=== PATIENT | female | born 1990 | race Caucasian/White ===

== ENCOUNTER 2020-02-23 20:05 | Emergency (ER) | payer SELFPAY ==
[~2020-02-23] VITALS: Ht 160 cm; Wt 54.5 kg
[2020-02-23 20:37] VITALS: Ht 160 cm; Wt 54.5 kg
[2020-02-23] MEDS ORDERED: PROVENTIL/2.5 MG/3 M INH (20:39)
[2020-02-23 21:09] LABS: HCG URINE NEGATIVE (NEGATIVE)
[2020-02-23 21:15] LABS: BASOPHILS 0.5 % (0-2); EOSINOPHILS 8.6 % (0-7); HEMATOCRIT 33.1 % (36.0-48.0); HEMOGLOBIN 10.8 g/dL (12-16); IMMATURE GRANULOCYTES 0.6 % (0-5); LYMPHOCYTES 28.2 % (15-50); MCH 25.7 pg (26.0-34.0); MCHC 32.6 g/dL (31.0-37.0); MCV 78.6 fL (80.0-100.0); MEAN PLATELET VOLUME 10.3 fL (7.4-10.4); NEUTROPHILS 53.1 % (40-80); PLATELET COUNT 259 10x3/uL (130-400); RBC 4.21 10x6/uL (4.00-5.40); RDW 14.8 % (11.5-14.5); WBC 6.6 10x3/uL (4.8-10.8)
[2020-02-23 21:27] LABS: ALBUMIN 3.6 g/dL (3.4-5.0); ALKALINE PHOSPHATASE 93 U/L (30-120); ALT (SGPT) 25 U/L (10-68); BILIRUBIN - TOTAL 0.36 mg/dL (0.2-1.3); CALC OSMOLALITY 268 mosm/kg (275-300); CALCIUM 8.6 mg/dL (8.5-10.1); CARBON DIOXIDE 27.6 mmol/L (21.0-32.0); CHLORIDE - SERUM 101 mmol/L (98-107); CREATININE - SERUM 0.9 mg/dL (0.6-1.3); GLUCOSE 83 mg/dL (74-106); POTASSIUM - SERUM 4.6 mmol/L (3.5-5.1); PROTEIN - SERUM 7.4 g/dL (6.4-8.2); SODIUM 135 mmol/L (136-145); UREA NITROGEN 13 mg/dL (7-18); eGFR NON AFRICAN AMERICAN 78 mL/min (90-120)
[2020-02-23] MEDS ORDERED: AMOXICILLIN500 M1 PO (21:43)
[2020-02-23] MEDS ORDERED: ALBUTEROL SULF8.5 GM INH (21:43)
[2020-02-23] MEDS ORDERED: MUCINEX DM ER1 EAC1 PO (21:43)
[2020-02-23 22:08] VITALS: BP 114/48
== END 2020-02-23 22:08 | disposition home or self-care (01) ==
LOC: D.ER 20:05
PROVIDERS: Family Medicine
DX: J06.9 Acute upper respiratory infection, unspecified (principal); R09.89 Other specified symptoms and signs involving the circulatory and respiratory systems; J45.909 Unspecified asthma, uncomplicated; Z72.0 Tobacco use; R06.02 Shortness of breath